=== PATIENT | female | born 1950 | race Caucasian/White ===

== ENCOUNTER → 2016-03-08 | Outpatient (CLI) | payer MEDICARE ==
[2016-03-08 10:25] LABS: Anion Gap 17 mmol/L; Blood Urea Nitrogen 15 mg/dL (7-17); Calcium 10.5 mg/dL (8.4-10.2); Carbon Dioxide 26 mmol/L (22-30); Chloride 102 mmol/L (98-107); Glucose 133 mg/dL (74-99); Non-African American GFR(MDRD) >60 (>60 ml/min/1.73 sqM); Potassium 4.6 mmol/L (3.5-5.1); Sodium 145 mmol/L (137-145)
[2016-03-08 11:05] LABS: Hemoglobin A1C 7.2 % (4.2-6.1)
== END | disposition home or self-care (01) ==
LOC: LABWHC1 09:09
PROVIDERS: ATTEND Internal Medicine
DX: E11.9 Type 2 diabetes mellitus without complications (principal); I11.9 Hypertensive heart disease without heart failure
CPT/HCPCS: 36415; 80048; 82043; 83036

== ENCOUNTER → 2016-08-02 | Outpatient (CLI) | payer MEDICARE ==
[2016-08-02 08:08] LABS: Basophils % (A) 0 %; CH 28.5; CHCM 32.9; Eosinophils # (A) 0.2 k/uL (0-0.7); Eosinophils % (A) 4 %; HCT 40.3 % (34.0-46.0); HDW 2.46; HGB 13.4 gm/dL (11.4-16.0); Luc # (Auto) 0.21; Luc % (Auto) 4; Lymphocytes # (A) 2.2 k/uL (1.0-4.8); Lymphocytes % (A) 39 %; MCHC 33.3 g/dL (31.0-37.0); Mean Platelet Volume 7.2; Monocytes # (A) 0.3 k/uL (0-1.0); Monocytes % (A) 6 %; Neutrophils # (A) 2.7 k/uL (1.3-7.7); Neutrophils % (A) 47 %; RBC 4.63 m/uL (3.80-5.40); WBC 5.7 k/uL (3.8-10.6); WBC (Perox) 6.11
[2016-08-02 08:12] LABS: Cholesterol 172 mg/dL (<200); HDL Cholesterol 68 mg/dL (40-60); Triglycerides 90 mg/dL (<150)
== END | disposition home or self-care (01) ==
LOC: LABWHC1 07:19
PROVIDERS: ATTEND Family Medicine
DX: E11.65 Type 2 diabetes mellitus with hyperglycemia (principal); E78.2 Mixed hyperlipidemia; Z79.899 Other long term (current) drug therapy
CPT/HCPCS: 36415; 80061; 85025

== ENCOUNTER → 2017-10-29 | Outpatient (CLI) | payer MEDICARE ==
--- NOTE | 2017-10-31 09:05 | MM ---
Reason for exam: screening (asymptomatic). Last mammogram was performed 2 years ago. Physical Findings: A clinical breast exam by your physician is recommended on an annual basis and results should be correlated with mammographic findings. MG Screening Mammo w CAD Bilateral CC and MLO view(s) were taken. Prior study comparison: October 17, 2015, bilateral MG screening mammo w CAD. October 01, 2014, mammogram, performed at [facility]. There are scattered fibroglandular densities. No significant changes when compared with prior studies. ASSESSMENT: Benign, BI-RAD 2 RECOMMENDATION: Routine screening mammogram of both breasts in 1 year.
== END | disposition home or self-care (01) ==
LOC: RADMAMWWP 13:37
PROVIDERS: ATTEND Family Medicine
DX: Z12.31 Encounter for screening mammogram for malignant neoplasm of breast (principal)
CPT/HCPCS: 77067

== ENCOUNTER → 2018-07-11 | Outpatient (CLI) | payer MEDICARE ==
[2018-07-11 10:52] LABS: Basophils % (A) 1 %; Eosinophils # (A) 0.2 k/uL (0-0.7); Eosinophils % (A) 3 %; HCT 41.1 % (34.0-46.0); HGB 13.5 gm/dL (11.4-16.0); Lymphocytes % (A) 32 %; MCH 28.7 pg (25.0-35.0); MCHC 32.8 g/dL (31.0-37.0); MCV 87.4 fL (80.0-100.0); Mean Platelet Volume 7.4; Monocytes # (A) 0.3 k/uL (0-1.0); Monocytes % (A) 5 %; Neutrophils # (A) 3.4 k/uL (1.3-7.7); Neutrophils % (A) 56 %; Platelet Count 442 k/uL (150-450); RDW 13.1 % (11.5-15.5); WBC 6.1 k/uL (3.8-10.6)
== END | disposition home or self-care (01) ==
LOC: LABWHC1 09:50
PROVIDERS: ATTEND Family Medicine
DX: J44.9 Chronic obstructive pulmonary disease, unspecified (principal); N18.1 Chronic kidney disease, stage 1
CPT/HCPCS: 36415; 85025

== ENCOUNTER → 2018-10-01 | Outpatient (CLI) | payer MEDICARE ==
[2018-10-01 12:08] LABS: Chol/HDL Ratio 4.56; LDL Cholesterol,Calculated 143.8 mg/dL (0.0-131.0); VLDL Calculation 34.2 mg/dL (5.00-40.00)
== END | disposition home or self-care (01) ==
LOC: LABWHC1 07:07
PROVIDERS: ATTEND Family Medicine
DX: E78.2 Mixed hyperlipidemia (principal)
CPT/HCPCS: 36415; 80061

== ENCOUNTER → 2018-12-20 | Outpatient (CLI) | payer MEDICARE ==
--- NOTE | 2018-12-23 08:13 | MM ---
Reason for exam: screening (asymptomatic). Last mammogram was performed 1 year and 2 months ago. History: Patient is postmenopausal. Took hormonal contraceptives for 4 years. Took estrogen for 1 year. Physical Findings: A clinical breast exam by your physician is recommended on an annual basis and results should be correlated with mammographic findings. MG 3D Screening Mammo W/Cad Bilateral CC and MLO view(s) were taken. Prior study comparison: October 29, 2017, bilateral MG screening mammo w CAD. October 17, 2015, bilateral MG screening mammo w CAD. There are scattered fibroglandular densities. Lateral asymmetric density left breast was present on 10/01/14. No significant changes when compared with prior studies. ASSESSMENT: Negative, BI-RAD 1 RECOMMENDATION: Routine screening mammogram of both breasts in 1 year.
== END | disposition home or self-care (01) ==
LOC: RADMAMWWP 12-04 09:17
PROVIDERS: ATTEND Family Medicine
DX: Z12.31 Encounter for screening mammogram for malignant neoplasm of breast (principal)
CPT/HCPCS: 77063; 77067

== ENCOUNTER → 2018-12-23 | Outpatient (CLI) | payer MEDICARE ==
[2018-12-23 09:45] LABS: Basophils # (A) 0.1 k/uL (0-0.2); Basophils % (A) 2 %; Eosinophils # (A) 0.1 k/uL (0-0.7); Eosinophils % (A) 3 %; HCT 41.6 % (34.0-46.0); HGB 13.7 gm/dL (11.4-16.0); Lymphocytes # (A) 1.8 k/uL (1.0-4.8); Lymphocytes % (A) 34 %; MCH 28.7 pg (25.0-35.0); MCV 86.8 fL (80.0-100.0); Mean Platelet Volume 6.7; Monocytes # (A) 0.4 k/uL (0-1.0); Monocytes % (A) 8 %; Neutrophils # (A) 2.7 k/uL (1.3-7.7); Neutrophils % (A) 51 %; Platelet Count 441 k/uL (150-450); RBC 4.79 m/uL (3.80-5.40); RDW 12.8 % (11.5-15.5); WBC 5.4 k/uL (3.8-10.6)
[2018-12-23 19:12] LABS: African American GFR (CKD) 102.5 (60.0-200.0); Anion Gap 15.5 mmol/L (4.00-12.00); Calcium 10.2 mg/dL (8.7-10.3); Carbon Dioxide 24.5 mmol/L (21.6-31.8); Chol/HDL Ratio 4.57; Potassium 4.6 mmol/L (3.5-5.5)
== END | disposition home or self-care (01) ==
LOC: LABWHC1 08:30
PROVIDERS: ATTEND Family Medicine
DX: E78.2 Mixed hyperlipidemia (principal); E11.9 Type 2 diabetes mellitus without complications; Z79.899 Other long term (current) drug therapy
CPT/HCPCS: 36415; 80048; 80061; 84450; 84460; 85025

== ENCOUNTER → 2019-01-03 | Outpatient (CLI) | payer MEDICARE ==
--- NOTE | 2019-01-03 20:15 | MR ---
EXAMINATION TYPE: MR lumbar spine wo con DATE OF EXAM: 01/03/2019 COMPARISON: None HISTORY: Low back pain TECHNIQUE: Multiplanar, multisequence images of the lumbar spine were acquired. Lumbar vertebra have fairly normal alignment. There is mild narrowing of lumbar disc spaces. There is no compression fracture. There are small posterior disc bulges and herniation from L1 to S1. There i s developmentally adequate spinal canal and no significant spinal stenosis. There is no lumbar parasp inal mass. I see no focal bone destruction. There is no significant neural foraminal narrowing. IMPRESSION: Mild multilevel spondylotic changes with posterior multilevel disc bulging. No significant encroachme nt on the spinal canal. No fracture.
== END | disposition home or self-care (01) ==
LOC: RADMRIMAIN 08:27
PROVIDERS: ATTEND Family Medicine
DX: M47.816 Spondylosis without myelopathy or radiculopathy, lumbar region (principal); M51.26 Other intervertebral disc displacement, lumbar region; M25.552 Pain in left hip
CPT/HCPCS: 72148

== ENCOUNTER 2019-12-16 07:05 | Day surgery (SDC) | payer MEDICARE ==
[2019-12-14 09:03] VITALS: BMI 23.8
[~2019-12-16 07:05] MED LIST: LACTATED RINGERS 1,000 ML IV SCH; LIDOCAINE 1% (10MG/ML) FOR IV START INTRADERMA PRN
[2019-12-16 07:34] VITALS: TEMP 96.3
[2019-12-16 07:34] LABS: Glucose,Whole Blood 127 mg/dL (75-99)
[2019-12-16] MEDS ORDERED: PROPOFOL 10 MG/ML 20 ML VIAL IV ONE (08:01)
--- NOTE | 2019-12-16 08:18 | P.PCN ---
Date of Procedure: 12/16/19 Procedure(s) Performed: BRIEF HISTORY: Patient is a 69-year-old pleasant white female scheduled for an elective colonoscopy as a part of evaluation of prior history of colon polyps. Her last colonoscopy was in 2011. PROCEDURE PERFORMED: Colonoscopy. PREOPERATIVE DIAGNOSIS: history of colon polyps. IV sedation per Anesthesia. PROCEDURE: After informed consent was obtained, the patient, was brought into the endoscopy unit. IV sedation was administered by Anesthesia under continuous monitoring. Digital rectal examination was normal. Initially the Olympus CF-160 flexible video colonoscope was then inserted in the rectum, gradually advanced into the cecum without any difficulty. Careful examination was performed as the scope was gradually being withdrawn. Ileocecal valve and the appendiceal orifice were visualized and appeared normal. Prep was excellent. Mucosa of the cecum, ascending colon, transverse colon, descending colon, sigmoid colon, and rectum appeared normal. scattered sigmoid diverticulosis.Retroflexion was performed in the rectum and Small internal hemorrhoids were seen. The patient tolerated the procedure well. IMPRESSION: Normal-appearing colon from rectum to cecum with no evidence of colorectal neoplasia. Scattered sigmoid diverticulosis Small internal hemorrhoids RECOMMENDATIONS: Findings of this examination were discussed with the patient as well as her family. She was advised to have a repeat screening colonoscopy in 10 years.
[2019-12-16 08:34] VITALS: BP 135/77; PULSE 60; RESP 18
== END 2019-12-16 08:52 | disposition home or self-care (01) ==
LOC: ORWHC2ENDO 07:05
PROVIDERS: ATTEND Internal Medicine Gastroenterology
DX: Z12.11 Encounter for screening for malignant neoplasm of colon (principal); K57.30 Diverticulosis of large intestine without perforation or abscess without bleeding; K64.8 Other hemorrhoids; Z86.010 Personal history of colon polyps; E11.9 Type 2 diabetes mellitus without complications; E78.5 Hyperlipidemia, unspecified; K21.9 Gastro-esophageal reflux disease without esophagitis; Z88.1 Allergy status to other antibiotic agents; Z96.1 Presence of intraocular lens; Z79.899 Other long term (current) drug therapy; Z79.84 Long term (current) use of oral hypoglycemic drugs; Z79.82 Long term (current) use of aspirin; Z98.49 Cataract extraction status, unspecified eye; Z90.710 Acquired absence of both cervix and uterus; Z98.890 Other specified postprocedural states; Z90.89 Acquired absence of other organs
CPT/HCPCS: J2704; G0105; 45378

== ENCOUNTER → 2020-03-07 | Outpatient (CLI) | payer MEDICARE ==
--- NOTE | 2020-03-07 15:49 | BD ---
EXAMINATION TYPE: Axial Bone Density DATE OF EXAM: 03/07/2020 COMPARISON: NONE CLINICAL HISTORY: Postmenopausal female Height: 5 FT 2 IN Weight: 135 FRAX RISK QUESTIONS: Alcohol (3 or more units per day): NO Family History (Parent hip fracture): NO Glucocorticoids (More than 3mos): CREAM (Ex: prednisone, prednisolone, methylprednisolone, dexamethasone, and hydrocortisone). History of Fracture in Adulthood: NO Secondary Osteoporosis: 1. Type 1 Diabetes: NO 2. Hyperthyroidism: NO 3. Menopause before 45: NO 4. Malnutrition: NO 5. Chronic liver disease: NO Rheumatoid Arthritis: NO Current Tobacco Use: NO RISK FACTORS HISTORY OF: Family History of Osteoporosis: NO Active: YES Diet low in dairy products/other sources of calcium: NO Postmenopausal woman: TOTAL HYST AGE 52 Take estrogen and/or progesterone medications: TOOK HRT FOR SEV MONTHS FOLLOWING HYST Lost more than 2 inches in height since high school: NO MEDICATIONS: Additional Medications: METFORMIN, LOPID, OMEPRAZOLE ,ASPIRIN Additional History: GANGLION CYST REMOVED FEB 2020 EXAM MEASUREMENTS: Bone mineral densitometry was performed using the Haier System. Bone mineral density as measured about the Lumbar spine is: ----- L1-L4(G/cm2): 1.399 T Score Values are as follows: ----- L2: 2.4 ----- L3: 2.4 ----- L4: 1.4 ----- L1-L4: 1.8 PREV DONE ELSEWHERE Bone mineral density about the R hip (g/cm2): 1.052 Bone mineral density about the L hip (g/cm2): 1.066 T Score values are as follows: -----R Neck: 0.2 -----L Neck: 0.1 -----R Total: 0.8 -----L Total: 0.6 PREV DONE ELSEWHERE IMPRESSION: Normal (Values between +1 and -1 indicate normal bone mass). Consider repeating this study in 5 year s or sooner if there is some new clinical indication. NOTE: T-SCORE=SD OF THE YOUNG ADULT MEAN.
--- NOTE | 2020-03-10 10:00 | MM ---
Reason for exam: screening (asymptomatic). Last mammogram was performed 1 year and 3 months ago. History: Patient is postmenopausal. Took hormonal contraceptives for 4 years. Took estrogen for 1 year. Physical Findings: A clinical breast exam by your physician is recommended on an annual basis and results should be correlated with mammographic findings. MG 3D Screening Mammo W/Cad Bilateral CC and MLO view(s) were taken. Prior study comparison: December 20, 2018, bilateral MG 3d screening mammo w/cad. October 29, 2017, bilateral MG screening mammo w CAD. There are scattered fibroglandular densities. No significant changes when compared with prior studies. ASSESSMENT: Benign, BI-RAD 2 RECOMMENDATION: Routine screening mammogram of both breasts in 1 year.
== END | disposition home or self-care (01) ==
LOC: RADMAMWWP 14:33
PROVIDERS: ATTEND Obstetrics & Gynecology
DX: Z12.31 Encounter for screening mammogram for malignant neoplasm of breast (principal); M85.88 Other specified disorders of bone density and structure, other site; N95.1 Menopausal and female climacteric states
CPT/HCPCS: 77063; 77067; 77080

== ENCOUNTER → 2020-04-12 | Outpatient (CLI) | payer MEDICARE ==
[2020-04-12 11:15] LABS: Basophils # (A) 0.04 X 10*3/uL (0.00-0.10); Basophils % (A) 0.6 %; Eosinophils # (A) 0.15 X 10*3/uL (0.04-0.35); Eosinophils % (A) 2.3 %; HCT 40.7 % (37.2-46.3); HGB 13.1 g/dL (12.0-15.0); Lymphocytes # (A) 2.45 X 10*3/uL (0.90-5.00); Lymphocytes % (A) 37.9 %; MCH 27.7 pg (27.0-32.0); MCHC 32.2 g/dL (32.0-37.0); Mean Platelet Volume 10.7 fL (9.5-12.2); Monocytes # (A) 0.49 X 10*3/uL (0.20-1.00); Monocytes % (A) 7.6 %; Neutrophils # (A) 3.32 X 10*3/uL (1.80-7.70); Neutrophils % (A) 51.4 %; Platelet Count 533 X 10*3/uL (140-440); RBC 4.73 X 10*6/uL (4.10-5.20); RDW 13.2 % (11.5-14.5); WBC 6.46 X 10*3/uL (4.50-10.00)
[2020-04-12 11:55] LABS: African American GFR (CKD) 101.7 (60.0-200.0); Albumin 5.3 g/dL (3.80-4.90); Albumin/Globulin Ratio 2.3 (1.60-3.17); Anion Gap 9.4 mmol/L (4.00-12.00); BUN/Creat Ratio 17.14 Ratio (12.00-20.00); Calcium 10.1 mg/dL (8.7-10.3); Carbon Dioxide 28.6 mmol/L (21.6-31.8); Chol/HDL Ratio 3.84; Globulin 2.3 g/dL (1.6-3.3); Non-African American GFR(CKD) 87.8 (60.0-200.0); Potassium 4.5 mmol/L (3.5-5.5); Total Bilirubin 0.4 mg/dL (0.3-1.2); Total Protein 7.6 g/dL (6.2-8.2)
== END | disposition home or self-care (01) ==
LOC: LABWHC1 07:31
PROVIDERS: ATTEND Family Medicine
DX: E11.9 Type 2 diabetes mellitus without complications (principal)
CPT/HCPCS: 36415; 80053; 80061; 85025

== ENCOUNTER 2020-08-23 21:07 | Observation (INO) | payer MEDICARE ==
--- NOTE | 2020-08-23 22:15 | ED ---
Chest Pain HPI - General Chief Complaint: Chest Pain Stated Complaint: Chest pain,Face swelling Time Seen by Provider: 08/23/20 21:25 Source: EMS Mode of arrival: EMS Limitations: no limitations - Related Data Home Medications Medication Instructions Recorded Confirmed Aspirin 81 mg PO HS 12/14/19 08/23/20 Omeprazole 20 mg PO DAILY 12/14/19 08/23/20 gemfibroziL [Lopid] 600 mg PO AC-BID 12/14/19 08/23/20 metFORMIN HCL [Glucophage] 500 mg PO BID 12/14/19 08/23/20 Clobetasol Emollient 0.05% Cre 1 applic TOPICAL BID 08/23/20 08/23/20 Allergies Allergy/AdvReac Type Severity Reaction Status Date / Time vancomycin Allergy SEVERE Verified 08/23/20 22:40 HEADACHE Review of Systems ROS Statement: Those systems with pertinent positive or pertinent negative responses have been documented in the HPI. ROS Other: All systems not noted in ROS Statement are negative. EKG Findings - EKG Comments: EKG Findings:: G is sinus rhythm 75 DE 162 QRS 82 QTC 439 Past Medical History Past Medical History: Diabetes Mellitus, GERD/Reflux, Osteoarthritis (OA) History of Any Multi-Drug Resistant Organisms: None Reported Past Surgical History: Adenoidectomy, Hysterectomy, Orthopedic Surgery, Tonsillectomy Additional Past Surgical History / Comment(s): CATARACT SURGERY WITH IMPLANTS , LEFT KNEE ARTHROSCOPIC Past Anesthesia/Blood Transfusion Reactions: No Reported Reaction Past Psychological History: Anxiety Smoking Status: Never smoker Past Alcohol Use History: None Reported Past Drug Use History: None Reported - Past Family History Mother Family Medical History: No Reported History General Exam Limitations: no limitations Course Vital Signs 08/23/20 21:19 Temperature 98.2 F Pulse Rate 76 Respiratory 16 Rate Blood Pressure 196/80 O2 Sat by Pulse 99 Oximetry Disposition Clinical Impression: Atypical chest pain, Chest pain Disposition: ADMITTED IP TO THIS HOSP Condition: Good Is patient prescribed a controlled substance at d/c from ED?: No Referrals: Elmer Rodriguez Jr, DO [Primary Care Provider] - 1-2 days
[2020-08-23] MEDS ORDERED: SODIUM CHLORIDE 0.9% 1,000 ML IV STA (22:31)
[2020-08-23] MEDS ORDERED: MAG HYDROX/AL HYDROX/SIMETH 30 ML, HYOSCYAMINE ELIXIR 10 ML PO STA ×2 (22:32)
[2020-08-23 22:41] LABS: Basophils % (A) 0 %; Eosinophils # (A) 0.1 k/uL (0-0.7); Eosinophils % (A) 2 %; HCT 37.2 % (34.0-46.0); HGB 12.8 gm/dL (11.4-16.0); Lymphocytes # (A) 2.6 k/uL (1.0-4.8); Lymphocytes % (A) 36 %; MCH 28.6 pg (25.0-35.0); MCHC 34.3 g/dL (31.0-37.0); MCV 83.4 fL (80.0-100.0); Monocytes # (A) 0.4 k/uL (0-1.0); Monocytes % (A) 5 %; Neutrophils # (A) 3.9 k/uL (1.3-7.7); Neutrophils % (A) 55 %; Platelet Count 427 k/uL (150-450); RBC 4.46 m/uL (3.80-5.40); RDW 13.4 % (11.5-15.5); WBC 7.2 k/uL (3.8-10.6)
[2020-08-23 22:50] LABS: ALT 23 U/L (4-34); AST 40 U/L (14-36); African American GFR (CKD) >90 (>60 ml/min/1.73 sqM); Albumin 4.9 g/dL (3.5-5.0); Alkaline Phosphatase 100 U/L (38-126); Anion Gap 14 mmol/L; Blood Urea Nitrogen 11 mg/dL (7-17); Calcium 10.3 mg/dL (8.4-10.2); Carbon Dioxide 22 mmol/L (22-30); Chloride 95 mmol/L (98-107); Creatine Kinase 670 U/L (30-135); Glucose 121 mg/dL (74-99); Lipase 162 U/L (23-300); Magnesium 1.7 mg/dL (1.6-2.3); Non-African American GFR(CKD) >90 (>60 ml/min/1.73 sqM); Potassium 4.7 mmol/L (3.5-5.1); Sodium 131 mmol/L (137-145); Total Bilirubin 0.3 mg/dL (0.2-1.3); Total Protein 7.9 g/dL (6.3-8.2)
--- NOTE | 2020-08-23 22:51 | XR ---
EXAMINATION TYPE: XR chest 2V DATE OF EXAM: 08/23/2020 COMPARISON: 10/17/2015 HISTORY: Chest pain TECHNIQUE: FINDINGS: Heart and mediastinum are normal. Lungs are clear. Diaphragm is normal. Bony thorax appears normal. IMPRESSION: Normal chest. No change.
[2020-08-23 22:54] LABS: INR 0.9 (<1.2); Partial Thromboplastin Time 22.5 sec (22.0-30.0); Prothrombin Time 10.2 sec (9.0-12.0)
[2020-08-23] MEDS ORDERED: ASPIRIN 81 MG PO STA (23:40)
[2020-08-23] MEDS ORDERED: NITROGLYCERIN SL TABS 0.4 MG TAB SUBLINGUAL PRN (23:40)
[2020-08-23] MEDS ORDERED: MORPHINE SULFATE 4 MG/ML SYRINGE IV PRN (23:40)
--- NOTE | 2020-08-23 23:41 | CT ---
EXAMINATION TYPE: CT angio chest DATE OF EXAM: 08/23/2020 COMPARISON: None HISTORY: SOB CT DLP: 230 mGycm Automated exposure control for dose reduction was used. CONTRAST: Performed with IV Contrast, patient injected with 80 mL of Isovue 370. There are 3-D post processed images. The lungs are clear of infiltrate. There is no evidence of a pulmonary mass. There is no pleural effu christian. There is no pericardial effusion. There is no evidence of a pneumothorax. Heart size is fairly normal. Thoracic aorta is intact. There is no dissection. The ascending aorta measures 3.3 cm. There is alecia l contrast opacification of the pulmonary arteries. There are no filling defects. There is no mediastinal adenopathy. There are no hilar masses. The bony thorax is intact. IMPRESSION: Normal exam. No evidence of pulmonary embolism. No suspicious pulmonary mass.
[2020-08-23] MEDS ORDERED: SODIUM CHLORIDE 0.9% 1,000 ML IV SCH (23:45)
[2020-08-24 00:56] VITALS: TEMP 98.1
[2020-08-24 06:10] LABS: Glucose,Whole Blood 131 mg/dL (75-99)
[2020-08-24] MEDS ORDERED: REGADENOSON 0.4 MG/5 ML SYRINGE IV PRN (07:27)
[2020-08-24] MEDS ORDERED: AMINOPHYLLINE 500 MG/20 ML VIAL IV PRN (07:27)
[2020-08-24] MEDS ORDERED: CAFFEINE CITRATE 60 MG/3 ML VIAL IV PRN (07:27)
[2020-08-24] MEDS ORDERED: PANTOPRAZOLE 40 MG TABLET PO SCH (07:30)
[2020-08-24] MEDS ORDERED: ASPIRIN 325 MG TAB PO SCH (09:00)
[2020-08-24] MEDS ORDERED: METOPROLOL TARTRATE 25 MG TAB PO SCH (09:00)
[2020-08-24] MEDS ORDERED: ASPIRIN 81 MG PO SCH (09:00)
[2020-08-24] MEDS ORDERED: HEPARIN SODIUM,PORCINE/PF 5,000 UNIT/0.5 ML SYRINGE SQ SCH (09:00)
[2020-08-24 10:56] LABS: African American GFR (CKD) >90 (>60 ml/min/1.73 sqM); Anion Gap 8 mmol/L; Blood Urea Nitrogen 8 mg/dL (7-17); Calcium 10.1 mg/dL (8.4-10.2); Carbon Dioxide 28 mmol/L (22-30); Chloride 99 mmol/L (98-107); Glucose 152 mg/dL (74-99); Non-African American GFR(CKD) >90 (>60 ml/min/1.73 sqM); Potassium 4.3 mmol/L (3.5-5.1); Sodium 135 mmol/L (137-145)
[2020-08-24 11:52] LABS: Glucose,Whole Blood 129 mg/dL (75-99)
--- NOTE | 2020-08-24 12:43 | NM ---
EXAMINATION TYPE: NM stress cardiolite complete DATE OF EXAM: 08/24/2020 COMPARISON: NONE HISTORY: S pain TECHNIQUE: After the intravenous administration of 9.7 mCi Tc 99m Sestamibi - Rest images obtained 5 5 minutes post injection. The patient exercised using a ATA protocol and 1 minute prior to peak e xercise was injected with 25.8 mCi Tc 99m Sestamibi - Stress images obtained 45 minutes post injectio n. Patient achieved 100% of expected maximal heart rate. FINDINGS: Targeted heart rate was achieved during performance of the study. Review of stress and rest SPECT drea ges demonstrates no distinct perfusion abnormality. Gated analysis shows normal wall motion with an estimated left ventricular ejection fraction of 83 %. IMPRESSION: No scintigraphic evidence for reversible ischemia consider echocardiographic correlation for elevated ejection fraction
--- NOTE | 2020-08-24 13:32 | P.STRESS ---
- Stress Test Note Stress Test Results/Findings: Exam Performed: NM stress cardiolite complete Exam Date: 08/24/20 Reason for Exam: CP Height: 5 ft 1 in Weight: 59 kg Protocol: CARDIOLITE Stage: 2 Duration of Exercise: 6:00 Resting Heart Rate: 67 Resting Blood Pressure: 170/85 Maximum Achieved Heart Rate: 151 Maximum Achieved Blood Pressure: 205/63 85% PMHR: 127 100% PMHR: 149 METS: 7.3 Technologist Comment: Stress Test Results/Findings: Patient underwent Cardiolite exercise stress EKG with a Carl protocol treadmill stress test. Patient exercised into Stage 2 for a total of 6 minutes reaching a total of 7.3 METS. Patient's maximum heart rate was 151 which represented 100 % age-predicted maximum heart rate. Stress EKG findings: At baseline patient's EKG showed normal sinus rhythm, normal axis, minimal 0.[address] depressions in 1. At peak exercise, EKG showed occasional PVCs, no significant change from baseline, large amount of artifact. Conclusions: 1. Normal EKG response to exercise without evidence of inducible ischemia. 2. Fair exercise capacity. 3. Nuclear portion to be reported separately.
--- NOTE | 2020-08-24 13:43 | ECHOF ---
Referral Reason:cp MEASUREMENTS -------- HEIGHT: 152.4 cm WEIGHT: 59.0 kg BP: 138/74 RVIDd: 2.6 cm (< 3.3) IVSd: 1.0 cm (0.6 - 1.1) LVIDd: 4.1 cm (3.9 - 5.3) LVPWd: 1.0 cm (0.6 - 1.1) IVSs: 1.2 cm LVIDs: 2.8 cm LVPWs: 1.7 cm LA Diam: 3.2 cm (2.7 - 3.8) Ao Diam: 2.7 cm (2.0 - 3.7) AV Cusp: 1.3 cm (1.5 - 2.6) MV EXCURSION: 16.659 mm (> 18.000) MV EF SLOPE: 27 mm/s (70 - 150) EPSS: 0.1 cm MV E Neftaly: 0.46 m/s MV DecT: 309 ms MV A Neftaly: 1.12 m/s MV E/A Ratio: 0.41 RAP: 5.00 mmHg RVSP: 25.88 mmHg FINDINGS -------- Sinus rhythm. This was a technically good study. LV size, wall thickness and systolic function are normal, with an EF greater than 55%. The left jett tricular size is normal. The right ventricle is normal in size. The left atrial size is normal. The right atrial size is normal. The aortic valve is trileaflet, and appears structurally normal. No aortic stenosis or regurgitation. Mild mitral annular calcification present. Mild mitral regurgitation is present. Mild tricuspid regurgitation present. Right ventricular systolic pressure is normal at < 35 mmHg. There is no pulmonic regurgitation present. The aortic root size is normal. There is no pericardial effusion. CONCLUSIONS -------- 1. LV size, wall thickness and systolic function are normal, with an EF greater than 55%. 2. The left ventricular size is normal. 3. The right ventricle is normal in size. 4. The left atrial size is normal. 5. The right atrial size is normal. 6. The aortic valve is trileaflet, and appears structurally normal. No aortic stenosis or regurgitati on. 7. Mild mitral annular calcification present. 8. Mild mitral regurgitation is present. 9. Mild tricuspid regurgitation present. 10. There is no pulmonic regurgitation present. 11. The aortic root size is normal. 12. There is no pericardial effusion. SENIOR ORACLE DBA: Angella Robsion RDCS
[2020-08-24 13:44] LABS: Chol/HDL Ratio 4.2; LDL Cholesterol,Calculated 142.4 mg/dL (0.0-131.0); VLDL Calculation 20.6 mg/dL (5.00-40.00)
--- NOTE | 2020-08-24 13:58 | CONS ---
CONSULTATION HISTORY OF PRESENT ILLNESS: This is a 70-year-old lady with a known diagnosis of type 2 diabetes mellitus, who takes care of her almost gives him full-time care. She also has hyperlipidemia. She came into the hospital with an episode of what she described as a lump like feeling in the epigastric area seemed to occur when she went to bed at night. Did not occur with physical activity. This was going on for about 2-3 days and then she decided to come into the hospital and then complained of left ear ache and some burning feeling in the left scientologist area. She came in with these symptoms and had 3 sets of troponins performed, all of which were unremarkable. She also had EKGs performed which revealed a sinus mechanism with nonspecific ST-T abnormality in the leads V1 and V2. The clinical picture suggests that she has what seems to be atypical chest pain, but she has risk factors in the form of hypertension and hypercholesterolemia. At the time of my evaluation, she is asymptomatic resting comfortably without symptoms. She indicates to me that she has gastroesophageal reflux disease and has taken omeprazole and her symptoms seem similar to that and this seemed to occur at night. Sometimes she is better off when she uses 2 pillows. The patient otherwise was free of chest pain at the time of my evaluation, and troponins are normal and EKG did not reveal any significant changes. PAST MEDICAL HISTORY: 1. Type 2 diabetes. 2. Hyperlipidemia. 3. History of some anxiety disorder. 4. The patient has gastroesophageal reflux disease. 5. She is status post hysterectomy and some orthopedic surgery and cataract surgery. MEDICATIONS: Medications at home include omeprazole, Lopid and metformin, aspirin 81 mg daily. ALLERGIES: SHE IS ALLERGIC TO VANCOMYCIN. PHYSICAL EXAMINATION: On examination, blood pressure is 130/70, pulse rate is 70 per minute, regular. HEENT unremarkable. Fundus was not examined by me. NECK is supple. There is no JVD. I do not hear a carotid bruit. There is no thyromegaly. HEART exam reveals S1, S2 heard normally. No rub, murmur or gallop. LUNGS are clear. ABDOMEN is soft, nontender. Lower EXTREMITIES reveal palpable pulses. No edema. CENTRAL NERVOUS SYSTEM is normal. EKG revealed sinus mechanism, nonspecific ST abnormality. No acute changes. LAB DATA: Reveals normal troponins. IMPRESSION: 1. Atypical chest pain. 2. Type 2 diabetes. 3. History of hypercholesterolemia. RECOMMENDATIONS: I am recommending that we will place her on a small dose of beta nely, proceed with stress Cardiolite scan. I will also decrease her aspirin to 81 mg daily. Continue the metoprolol tartrate as ordered. I will also start her on a statin medication, Lipitor 20 mg daily. If stress test is negative, she can be discharged and I will see her in the office. I discussed my thoughts in detail with the patient. Thank you very much for the consult. DERRICK / BERNARDO: [id number] /
[2020-08-24 14:38] VITALS: BP 123/70; PULSE 66; RESP 18
--- NOTE | 2020-08-24 15:53 | P.HPIM ---
History of Present Illness H&P Date: 08/24/20 Chief Complaint: Midsternal chest pain History and Physical and Discharge Summary This is 70-year-old female with past medical history of diabetes mellitus, gastroesophageal reflux disease, osteoarthritis, anxiety, constipation and multiple other medical issues presented to the ER with complaints of nonradiating midsternal chest pain 2 days. States pain initially woke her up on Saturday morning at 0400. Reported midsternal sensation resembling "food stuck penitent[facility] down " and had difficulty eating from that point on until now. Denies nausea vomiting or diarrhea. Denies shortness of breath, no diaphoresis. Denies lightheadedness dizziness or focal deficits. Patient reports she is active , walks and bikes daily.Hypertensive on admission with systolic blood pressure in the 190s. Troponins negative 3, sodium initially 131, currently 135. Triglycerides 103, Cholesterol 214 , LDL 142.4 , HDL 51 .Chest x-ray repo rted normal. CTA reported normal ,negative for PE or pulmonary mass. EKG reporting normal sinus rhythm and nonspecific ST abnormalities, possible anterior infarct, age undetermined. Evaluated by surgery, recently returned from Cardiolite stress test. Denies further chest pain. On Sitting up, eating, without difficulty. Discussed proceeding with barium swallow to rule out stricture or foreign mass with a GI consult once currently stress test results are available. Patient agreeable to plan of care. Review of Systems ROS Statement: Those systems with pertinent positive or pertinent negative responses have been documented in the HPI. ROS Other: All systems not noted in ROS Statement are negative. Past Medical History Past Medical History: Diabetes Mellitus, GERD/Reflux, Osteoarthritis (OA) History of Any Multi-Drug Resistant Organisms: None Reported Past Surgical History: Adenoidectomy, Hysterectomy, Orthopedic Surgery, Tonsillectomy Additional Past Surgical History / Comment(s): CATARACT SURGERY WITH IMPLANTS , LEFT KNEE ARTHROSCOPIC Past Anesthesia/Blood Transfusion Reactions: No Reported Reaction Past Psychological History: Anxiety Smoking Status: Never smoker Past Alcohol Use History: None Reported Past Drug Use History: None Reported - Past Family History Mother Family Medical History: No Reported History Medications and Allergies Home Medications Medication Instructions Recorded Confirmed Type Aspirin 81 mg PO HS 12/14/19 08/23/20 History Omeprazole 20 mg PO DAILY 12/14/19 08/23/20 History gemfibroziL [Lopid] 600 mg PO AC-BID 12/14/19 08/23/20 History metFORMIN HCL [Glucophage] 500 mg PO BID 12/14/19 08/23/20 History Clobetasol Emollient 0.05% Cre 1 applic TOPICAL BID 08/23/20 08/23/20 History Atorvastatin [Lipitor] 20 mg PO DAILY #30 tab 08/24/20 Rx Metoprolol Tartrate [Lopressor] 12.5 mg PO BID #60 tab 08/24/20 Rx Allergies Allergy/AdvReac Type Severity Reaction Status Date / Time vancomycin Allergy SEVERE Verified 08/23/20 22:40 HEADACHE Physical Exam Vitals: Vital Signs Temp Pulse Pulse Resp BP BP Pulse Ox 08/24/20 04:00 98.1 F 60 17 138/74 97 08/24/20 01:40 65 18 08/24/20 00:54 98.1 F 69 18 158/74 98 08/24/20 00:11 78 16 188/72 97 08/23/20 21:19 98.2 F 76 16 196/80 99 Intake and Output 08/23/20 08/24/20 08/24/20 22:59 06:59 14:59 Other: Voiding Method Toilet Weight 58.967 kg 59 kg PHYSICAL EXAM: VITAL SIGNS: As above GENERAL: Sitting up in bed, no acute distress HEENT: Conjunctivae normal. eyes normal. Oral mucosa moist NECK: No JVD. No thyroid enlargement. CARDIOVASCULAR: S1, S2 regular.. No murmur RESPIRATION: Breath sounds diminished in the bases. No rhonchi or crackles. No bronchial breathing. ABDOMEN: Soft, nontender . No guarding. no masses palpable. No ascites, No hepatosplenomegaly.Bowel sounds heard. LEGS: No edema. no swelling PSYCHIATRY: Alert and oriented X3, mood and affect normal. NERVOUS SYSTEM: Cranial N 2-12 grossly normal. Moves all 4 limbs. No focal deficits. Strength and sensation grossly intact.. Skin: Warm and dry, no rash Lymphatic system. No LN neck axilla. Results CBC & Chem 7: 08/23/20 21:51 08/24/20 10:27 Labs: Abnormal Lab Results - Last 24 Hours (Table) 08/23/20 08/24/20 Range/Units 21:51 06:09 Sodium 131 L (137-145) mmol/L Chloride 95 L (98-107) mmol/L Creatinine 0.46 L (0.52-1.04) mg/dL Glucose 121 H (74-99) mg/dL POC Glucose (mg/dL) 131 H (75-99) mg/dL Calcium 10.3 H (8.4-10.2) mg/dL AST 40 H (14-36) U/L Creatine Kinase 670 H (30-135) U/L Thrombosis Risk Factor Assmnt - Choose All That Apply Any of the Below Risk Factors Present?: Yes Each Risk Factor Represents 2 Points: Age 61-74 years Other congenital or acquired thrombophilia - If yes, enter type in comment: No Thrombosis Risk Factor Assessment Total Risk Factor Score: 2 Thrombosis Risk Factor Assessment Level: Low Risk Assessment and Plan Assessment: Acute midsternal chest pain, normal troponins, atypical, Cardiolite stress test pending Accelerated hypertension, present on admission, controlled Hyponatremia, resolved Gastroesophageal reflux disease Hypercholesterolemia Diabetes mellitus type 2 Osteoarthritis Anxiety Constipation, takes Colace as needed. Plan: Continue on current medication regime ,monitoring and symptomatic treatme nt. Significant clinical improvement. Patient will be discharged home today in a stable condition with guarded prognosis pending her stress test results, final DC recommendations and clearance from cardiology. Recently notified that patient now declining barium swallow, states it was just completed?? And wishes to proceed home. Barium swallow and GI consult canceled. Recommend further follow-up outpatient with GI. Discharge Medication List Aspirin 81 mg PO HS 12/14/19 [History] Omeprazole 20 mg PO DAILY 12/14/19 [History] gemfibroziL [Lopid] 600 mg PO AC-BID 12/14/19 [History] metFORMIN HCL [Glucophage] 500 mg PO BID 12/14/19 [History] Clobetasol Emollient 0.05% Cre 1 applic TOPICAL BID 08/23/20 [History] Atorvastatin [Lipitor] 20 mg PO DAILY #30 tab 08/24/20 [Rx] Metoprolol Tartrate [Lopressor] 12.5 mg PO BID #60 tab 08/24/20 [Rx] The impression and plan of care has been dictated as directed. : I performed a history and examination of this patient, discussed the same with the dictator. I agree with the dictator's note ,documented as a scribe. Any additional findings or plans will be noted.
[2020-08-25] MEDS ORDERED: ATORVASTATIN 20 MG TAB PO SCH (09:00)
== END 2020-08-24 16:29 | disposition home or self-care (01) ==
LOC: EC 21:07 → 3SCARD 23:40
PROVIDERS: ADMIT Family Medicine; ATTEND Family Medicine
DX: R07.2 Precordial pain (principal); I10 Essential (primary) hypertension; E87.1 Hypo-osmolality and hyponatremia; K21.9 Gastro-esophageal reflux disease without esophagitis; E11.9 Type 2 diabetes mellitus without complications; E78.00 Pure hypercholesterolemia, unspecified; M19.90 Unspecified osteoarthritis, unspecified site; K59.00 Constipation, unspecified; Z20.822 Contact with and (suspected) exposure to COVID-19; H92.02 Otalgia, left ear; R94.31 Abnormal electrocardiogram [ECG] [EKG]; E78.5 Hyperlipidemia, unspecified; Z88.1 Allergy status to other antibiotic agents; F41.9 Anxiety disorder, unspecified; Z79.82 Long term (current) use of aspirin; Z79.84 Long term (current) use of oral hypoglycemic drugs; Z79.899 Other long term (current) drug therapy; Z98.41 Cataract extraction status, right eye; Z98.42 Cataract extraction status, left eye; Z90.710 Acquired absence of both cervix and uterus
CPT/HCPCS: 93005 ×2; 99285; 36415; 93017; 93306; 83880; 80061; 80053; 80048; 82550; 83690; 83735; 84484 ×2; 85025; 85610; 85730; 87635; 71046; 71275; 78452; G0378; A9500; Q9967

== ENCOUNTER → 2020-09-09 | Outpatient (CLI) | payer MEDICARE | END | disposition home or self-care (01) ==

== ENCOUNTER → 2021-01-19 | Outpatient (CLI) | payer MEDICARE ==
--- NOTE | 2021-01-19 12:50 | XR ---
EXAMINATION TYPE: XR Hip LT and AP Pelvis DATE OF EXAM: 01/19/2021 CLINICAL HISTORY: pain TECHNIQUE: AP and frogleg views of the left hip are obtained. Single view pelvis is also submitted. COMPARISON: None. FINDINGS: There is no acute fracture/dislocation evident. The joint space appears within normal li mits. The overlying soft tissue appears unremarkable. IMPRESSION: 1. There is no acute fracture or dislocation.ICD 10 NO FRACTURE, INITIAL EVALUATION
== END ==
LOC: RADXRMAIN 11:15
PROVIDERS: ATTEND Family Medicine
DX: M25.552 Pain in left hip (principal)
CPT/HCPCS: 73502

== ENCOUNTER → 2022-03-15 | Outpatient (CLI) | payer MEDICARE ==
--- NOTE | 2022-03-15 10:25 | MM ---
Reason for Exam: Clinical finding. Last screening mammogram was performed 10 month(s) ago. Indicated Problems: Non-bloody discharge of both sides (White) for 1 Year(s). Pain of the right side (Focal) for 1 Day(s) : UNDER BREAST. Patient History: Menarche at age 10. First Full-Term at age 18. Left ovary removed at age 53. Right ovary removed at age 53. Hysterectomy at age 53. Postmenopausal. Patient used Estrogen for 1 year. Patient used Hormonal Contraceptives for 4 years. Risk Values: Angela 5 year model risk: 1.4%. NCI Lifetime model risk: 3.6%. Prior Study Comparison: 10/29/2017 Bilateral Screening Mammogram, [facility]. 12/20/2018 Bilateral Screening Mammogram, [facility]. 03/07/2020 Bilateral Screening Mammogram, [facility]. 05/12/2021 Bilateral Screening Mammogram, [facility]. Tissue Density: There are scattered fibroglandular densities. Findings: Analyzed By CAD. Scattered benign round calcifications are redemonstrated. Some areas of asymmetric density remain unchanged. No significant change from prior exams. Slight nipple inversion on both sides is a chronic finding. Patient reports bilateral galactorrhea. Overall Assessment: Incomplete: need additional imaging evaluation, BI-RAD 0 Management: Diagnostic Breast Ultrasound of both breasts. Periareolar regions on both sides. Electronically signed and approved by: María Elena Kearns M.D. Radiologist
--- NOTE | 2022-03-15 10:44 | USB ---
Reason for Exam: Clinical finding. Patient History: Menarche at age 10. First Full-Term at age 18. Left ovary removed at age 53. Right ovary removed at age 53. Hysterectomy at age 53. Postmenopausal. Patient used Estrogen for 1 year. Patient used Hormonal Contraceptives for 4 years. Risk Values: Angela 5 year model risk: 1.4%. NCI Lifetime model risk: 3.6%. Technique: Method: Targeted. Prior Study Comparison: 12/20/2018 Bilateral Screening Mammogram, [facility]. 03/07/2020 Bilateral Screening Mammogram, [facility]. 05/12/2021 Bilateral Screening Mammogram, [facility]. Findings: The axilla of both breasts and the retroareolar of both breasts were scanned. Bilateral subareolar and periareolar breast ultrasounds are performed including standing of the axilla. No solid or cystic lesion or axillary lymphadenopathy is seen. No duct ectasia. Overall Assessment: Benign, BI-RAD 2 Management: Screening Mammogram of both breasts in 1 year. Further clinical workup and management of patient's galactorrhea as indicated. Patient should continue monthly self breast exams. These results should not preclude additional follow-up of suspicious palpable abnormalities. Results were given to the patient verbally at the time of exam. Electronically signed and approved by: María Elena Kearns M.D. Radiologist
== END | disposition home or self-care (01) ==
LOC: RADMAMWWP 09:35
PROVIDERS: ATTEND Obstetrics & Gynecology Obstetrics
DX: N64.52 Nipple discharge (principal); N64.4 Mastodynia; Z78.0 Asymptomatic menopausal state
CPT/HCPCS: 77066; 76642; G0279; 77062

== ENCOUNTER → 2022-08-31 | Outpatient (CLI) | payer MEDICARE | END | disposition home or self-care (01) | LOC: LABWHC1 14:51 | PROVIDERS: ATTEND Family Medicine | DX: E11.9 Type 2 diabetes mellitus without complications (principal) | CPT/HCPCS: 36415; 83036 ==

== ENCOUNTER 2022-10-04 06:57 | Observation (INO) | payer MEDICARE ==
[2022-10-04] MEDS ORDERED: ASPIRIN 81 MG PO STA (07:09)
--- NOTE | 2022-10-04 07:09 | ED ---
General Adult HPI <Catarino Moreira - Last Filed: 10/04/22 09:39> - General Source: patient Limitations: no limitations - History of Present Illness -: hour(s) (3) Quality: stabbing Consistency: intermittent, now resolved Associated Symptoms: other (left arm heavy) Treatments Prior to Arrival: none - Related Data Patient : No <Jaylan Schaeffer - Last Filed: 10/04/22 10:38> - General Stated complaint: Chest Pain Time Seen by Provider: 10/04/22 07:02 - History of Present Illness Initial comments: Well appearing female present alert and oriented with complaints of having sharp pains in her chest since 0430 this morning which lasted only 20 seconds. Had same pain yesterday while working around house. Just lasted a second or two. Was see by Dr Redman a couple years ago and was told she had a heart murmur. No nausea, vomiting or diaphrorsis. Left arm feels heavy which just started, and also a little bit of pain in her back on left side. Hx: diabetes, htn (Jaylan Schaeffer) - Related Data Home Medications Medication Instructions Recorded Confirmed Aspirin 81 mg PO HS 12/14/19 10/04/22 Omeprazole 40 mg PO DAILY 12/14/19 10/04/22 gemfibroziL [Lopid] 600 mg PO AC-BID 12/14/19 10/04/22 metFORMIN HCL [Glucophage] 500 mg PO BID 12/14/19 10/04/22 Cholecalciferol [Vitamin D3 (25 50 mcg PO DAILY 10/04/22 10/04/22 Mcg = 1000 Iu)] Losartan [Cozaar] 12.5 mg PO DAILY 10/04/22 10/04/22 Multivit-Min/FA/Lycopen/Lutein 1 tab PO DAILY 10/04/22 10/04/22 [Centrum Silver Tablet] Triamcinolone 0.1% Cream [Kenalog 1 applic TOPICAL TID 10/04/22 10/04/22 0.1% Cream] Previous Rx's Medication Instructions Recorded Atorvastatin [Lipitor] 20 mg PO DAILY #30 tab 08/24/20 Metoprolol Tartrate [Lopressor] 12.5 mg PO BID #60 tab 08/24/20 Allergies Allergy/AdvReac Type Severity Reaction Status Date / Time vancomycin AdvReac SEVERE Verified 10/04/22 08:42 HEADACHE Review of Systems ROS Other: All systems not noted in ROS Statement are negative. <Catarino Moreira - Last Filed: 10/04/22 09:39> ROS Other: All systems not noted in ROS Statement are negative. <Jaylan Schaeffer - Last Filed: 10/04/22 10:38> ROS Statement: Those systems with pertinent positive or pertinent negative responses have been documented in the HPI. Past Medical History Past Medical History: Diabetes Mellitus, GERD/Reflux, Osteoarthritis (OA) History of Any Multi-Drug Resistant Organisms: None Reported Past Surgical History: Adenoidectomy, Hysterectomy, Orthopedic Surgery, Tonsillectomy Additional Past Surgical History / Comment(s): CATARACT SURGERY WITH IMPLANTS , LEFT KNEE ARTHROSCOPIC Past Anesthesia/Blood Transfusion Reactions: No Reported Reaction Past Psychological History: Anxiety Smoking Status: Never smoker Past Alcohol Use History: None Reported Past Drug Use History: None Reported - Past Family History Mother Family Medical History: No Reported History <Jaylan Schaeffer - Last Filed: 10/04/22 10:38> General Exam Limitations: no limitations General appearance: alert (s) Head exam: Present: atraumatic Eye exam: Present: normal appearance. Absent: scleral icterus, conjunctival injection, periorbital swelling Neck exam: Present: normal inspection, full ROM. Absent: tenderness, meningismus Respiratory exam: Present: normal lung sounds bilaterally. Absent: respiratory distress, accessory muscle use Cardiovascular Exam: Present: regular rate, normal rhythm Extremities exam: Present: full ROM, normal capillary refill. Absent: tenderness, pedal edema Neurological exam: Present: alert, oriented X3 Psychiatric exam: Present: normal affect, normal mood Skin exam: Present: warm, dry, normal color. Absent: cyanosis, diaphoretic <Jaylan Schaeffer - Last Filed: 10/04/22 10:38> Course Vital Signs 10/04/22 10/04/22 07:03 09:24 Temperature 98.4 F Pulse Rate 73 60 Respiratory 18 18 Rate Blood Pressure 169/82 146/65 O2 Sat by Pulse 98 100 Oximetry Medical Decision Making - Lab Data Result diagrams: 10/04/22 07:59 10/04/22 07:59 <Catarino Moreira - Last Filed: 10/04/22 09:39> - Lab Data Result diagrams: 10/04/22 07:59 10/04/22 07:59 <Jaylan Schaeffer - Last Filed: 10/04/22 10:38> - Medical Decision Making EKG was interpreted by myself that shows a sinus bradycardia 59 bpm NH interval 246 dresses 94 Q-T intervals 425 QTC is 425 per patient's EKG shows no ST segment elevation or depression. Was pt. sent in by a medical professional or institution (, POWER, CHART READER, urgent care, hospital, or fdc...) When possible be specific @ -No Did you speak to anyone other than the patient for history (EMS, parent, family, police, friend...)? What history was obtained from this source @ -No Did you review nursing and triage notes (agree or disagree)? Why? @ -I reviewed and agree with nursing and triage notes Were old charts reviewed (outside hosp., previous admission, EMS record, old E KG, old radiological studies, urgent care reports/EKG's, fdc records)? Report findings @ -I reviewed prior charts and per lab work on this patient Differential Diagnosis (chest pain, altered mental status, abdominal pain women, abdominal pain men, vaginal bleeding, weakness, fever, dyspnea, syncope, headache, dizziness, GI bleed, back pain, seizure, CVA, palpatations, mental health, musculoskeletal)? @ -Differential Chest Pain: Stable Angina, Unstable Angina, STEMI, NSTEMI Aortic Dissection, Pneumothorax, Musculoskeletal, Esophageal Spasm GERD, Cholecystitis, Pancreatitis, Zoster, this is not meant to be an all-inclusive list. EKG interpreted by me (3pts min.). @ -As above X-rays interpreted by me (1pt min.). @ -Chest x-ray shows no acute abnormality CT interpreted by me (1pt min.). @ -None done U/S interpreted by me (1pt. min.). @ -None done What testing was considered but not performed or refused? (CT, X-rays, U/S, labs)? Why? @ -None What meds were considered but not given or refused? Why? @ -None Did you discuss the management of the patient with other professionals (professionals i.e. , POWER, CHART READER, lab, RT, psych nurse, social media job titles, pre planning advisor, teacher, sanitation officer, caser)? Give summary @ -I spoke with [facility] and he agreed to admit the patient admitted the patient wrote admitting orders Was smoking cessation discussed for >3mins.? @ -No Was critical care preformed (if so, how long)? @ -No Were there social determinants of health that impacted care today? How? (Homelessness, low income, unemployed, alcoholism, drug addiction, transportation, low edu. Level, literacy, decrease access to med. care, alf, rehab)? @ -No Was there de-escalation of care discussed even if they declined (Discuss DNR or withdrawal of care, Hospice)? DNR status @ -No What co-morbidities impacted this encounter? (DM, HTN, Smoking, COPD, CAD, Cancer, CVA, ARF, Chemo, Hep., AIDS, mental health diagnosis, sleep apnea, morbid obesity)? @ -None Was patient admitted / discharged? Hospital course, mention meds given and route, prescriptions, significant lab abnormalities, going to OR and other pertinent info. @ -Patient continued to have heaviness in the left arm and minimal heaviness in the chest. I spoke with [facility] after lab work showed no acute abnormalities and he agreed to take the patient I admitted the patient to them I consult cardiology Undiagnosed new problem with uncertain prognosis? @ -No Drug Therapy requiring intensive monitoring for toxicity (Heparin, Nitro, Insulin, Cardizem)? @ -No Were any procedures done? @ -No Diagnosis/symptom? @ -Chest pain Acute, or Chronic, or Acute on Chronic? @ -Acute Uncomplicated (without systemic symptoms) or Complicated (systemic symptoms)? @ -Complicated Side effects of treatment? @ -No Exacerbation, Progression, or Severe Exacerbation? @ -No Poses a threat to life or bodily function? How? (Chest pain, [place], [place], pneumonia, PE, COPD, DKA, ARF, appy, cholecystitis, CVA, Diverticulitis, Homicidal, Suicidal, threat to staff... and all critical care pts) @ -Yes this can lead to an [place] which could lead to end organ dysfunction (Catarino Moreira) - Lab Data Lab Results 10/04/22 10/04/22 10/04/22 Range/Units 07:59 07:59 07:59 WBC 5.6 (3.8-10.6) k/uL RBC 4.58 (3.80-5.40) m/uL Hgb 13.0 (11.4-16.0) gm/dL Hct 38.5 (34.0-46.0) % MCV 84.1 (80.0-100.0) fL MCH 28.3 (25.0-35.0) pg MCHC 33.7 (31.0-37.0) g/dL RDW 13.1 (11.5-15.5) % Plt Count 498 H (150-450) k/uL MPV 7.3 Neutrophils % 59 % Lymphocytes % 29 % Monocytes % 8 % Eosinophils % 3 % Basophils % 1 % Neutrophils # 3.3 (1.3-7.7) k/uL Lymphocytes # 1.6 (1.0-4.8) k/uL Monocytes # 0.4 (0-1.0) k/uL Eosinophils # 0.2 (0-0.7) k/uL Basophils # 0.0 (0-0.2) k/uL PT 10.2 (9.0-12.0) sec INR 1.0 (<1.2) APTT 23.6 (22.0-30.0) sec D-Dimer 0.49 (<0.60) mg/L FEU Sodium 128 L (137-145) mmol/L Potassium 4.9 (3.5-5.1) mmol/L Chloride 94 L (98-107) mmol/L Carbon Dioxide 25 (22-30) mmol/L Anion Gap 9 mmol/L BUN 10 (7-17) mg/dL Creatinine 0.55 (0.52-1.04) mg/dL Est GFR (CKD-EPI)AfAm >90 (>60 ml/min/1.73 sqM) Est GFR (CKD-EPI)NonAf >90 (>60 ml/min/1.73 sqM) Glucose 104 H (74-99) mg/dL Calcium 10.2 (8.4-10.2) mg/dL Magnesium 1.7 (1.6-2.3) mg/dL Total Bilirubin 0.5 (0.2-1.3) mg/dL AST 28 (14-36) U/L ALT 23 (4-34) U/L Alkaline Phosphatase 88 (38-126) U/L Troponin I (0.000-0.034) ng/mL Total Protein 7.9 (6.3-8.2) g/dL Albumin 4.7 (3.5-5.0) g/dL 10/04/22 Range/Units 07:59 WBC (3.8-10.6) k/uL RBC (3.80-5.40) m/uL Hgb (11.4-16.0) gm/dL Hct (34.0-46.0) % MCV (80.0-100.0) fL MCH (25.0-35.0) pg MCHC (31.0-37.0) g/dL RDW (11.5-15.5) % Plt Count (150-450) k/uL MPV Neutrophils % % Lymphocytes % % Monocytes % % Eosinophils % % Basophils % % Neutrophils # (1.3-7.7) k/uL Lymphocytes # (1.0-4.8) k/uL Monocytes # (0-1.0) k/uL Eosinophils # (0-0.7) k/uL Basophils # (0-0.2) k/uL PT (9.0-12.0) sec INR (<1.2) APTT (22.0-30.0) sec D-Dimer (<0.60) mg/L FEU Sodium (137-145) mmol/L Potassium (3.5-5.1) mmol/L Chloride (98-107) mmol/L Carbon Dioxide (22-30) mmol/L Anion Gap mmol/L BUN (7-17) mg/dL Creatinine (0.52-1.04) mg/dL Est GFR (CKD-EPI)AfAm (>60 ml/min/1.73 sqM) Est GFR (CKD-EPI)NonAf (>60 ml/min/1.73 sqM) Glucose (74-99) mg/dL Calcium (8.4-10.2) mg/dL Magnesium (1.6-2.3) mg/dL Total Bilirubin (0.2-1.3) mg/dL AST (14-36) U/L ALT (4-34) U/L Alkaline Phosphatase (38-126) U/L Troponin I <0.012 (0.000-0.034) ng/mL Total Protein (6.3-8.2) g/dL Albumin (3.5-5.0) g/dL Disposition Time of Disposition: 09:42 <Catarino Moreira - Last Filed: 10/04/22 09:39> <Jaylan Schaeffer - Last Filed: 10/04/22 10:38> Clinical Impression: Chest pain Disposition: ADMITTED IP TO THIS HOSP
[2022-10-04] MEDS ORDERED: PANTOPRAZOLE 40 MG/10 ML VIAL IVP STA (07:11)
[2022-10-04 08:14] LABS: Basophils % (A) 1 %; Eosinophils # (A) 0.2 k/uL (0-0.7); Eosinophils % (A) 3 %; HCT 38.5 % (34.0-46.0); Lymphocytes # (A) 1.6 k/uL (1.0-4.8); Lymphocytes % (A) 29 %; MCH 28.3 pg (25.0-35.0); MCHC 33.7 g/dL (31.0-37.0); MCV 84.1 fL (80.0-100.0); Mean Platelet Volume 7.3; Monocytes # (A) 0.4 k/uL (0-1.0); Monocytes % (A) 8 %; Neutrophils # (A) 3.3 k/uL (1.3-7.7); Neutrophils % (A) 59 %; Platelet Count 498 k/uL (150-450); RBC 4.58 m/uL (3.80-5.40); RDW 13.1 % (11.5-15.5); WBC 5.6 k/uL (3.8-10.6)
[2022-10-04 08:23] LABS: Partial Thromboplastin Time 23.6 sec (22.0-30.0); Prothrombin Time 10.2 sec (9.0-12.0)
--- NOTE | 2022-10-04 08:29 | XR ---
EXAMINATION TYPE: XR chest 2V DATE OF EXAM: 10/04/2022 COMPARISON: 08/23/2020 HISTORY: 72-year-old female with chest pain TECHNIQUE: PA and lateral views FINDINGS: Heart normal size. Aorta and pulmonary vasculature within normal limits. Mild interstitial prominence and hyperinflation is unchanged. No consolidation or pleural effusion. Anterior endplate spondylosis mid to lower thoracic spine. IMPRESSION: COPD. No definite acute process.
[2022-10-04 08:30] LABS: ALT 23 U/L (4-34); AST 28 U/L (14-36); African American GFR (CKD) >90 (>60 ml/min/1.73 sqM); Albumin 4.7 g/dL (3.5-5.0); Alkaline Phosphatase 88 U/L (38-126); Anion Gap 9 mmol/L; Blood Urea Nitrogen 10 mg/dL (7-17); Calcium 10.2 mg/dL (8.4-10.2); Carbon Dioxide 25 mmol/L (22-30); Chloride 94 mmol/L (98-107); Glucose 104 mg/dL (74-99); Magnesium 1.7 mg/dL (1.6-2.3); Non-African American GFR(CKD) >90 (>60 ml/min/1.73 sqM); Potassium 4.9 mmol/L (3.5-5.1); Sodium 128 mmol/L (137-145); Total Bilirubin 0.5 mg/dL (0.2-1.3); Total Protein 7.9 g/dL (6.3-8.2)
[2022-10-04] MEDS ORDERED: NITROGLYCERIN SL TABS 0.4 MG TAB SUBLINGUAL PRN (09:23)
[2022-10-04] MEDS ORDERED: NALOXONE 0.4 MG/ML 1 ML VIAL IVP PRN (09:23)
[2022-10-04] MEDS ORDERED: ACETAMINOPHEN TAB 325 MG TAB PO PRN (09:23)
[2022-10-04] MEDS ORDERED: NITROGLYCERIN OINT 1 INCH/GM PACKET TOPICAL SCH (12:00)
[2022-10-04 12:05] LABS: Glucose,Whole Blood 108 mg/dL (70-110)
[2022-10-04] MEDS: INSULIN ASPART (NovoLOG) 100 UNIT/ML VIAL SQ SCH ×3 (12:06→22:26)
--- NOTE | 2022-10-04 13:00 | P.CRDCN ---
History of Present Illness History of present illness: HISTORY OF PRESENT ILLNESS: This is a 72-year-old female with a past medical history significant for hypertension, hyperlipidemia, and diabetes. Patient follows in the office with Dr. Redman. We have been asked to see the patient in consultation for chest pain. Patient examined at the bedside in the emergency room. Patient states she began having pain on the left side of her chest. She also reports a feeling like there is something underneath her left armpit that she described as "fluffy". She states the chest pain would feel like a sharp sensation that would last anywhere from 5-15 seconds at a time. She denied any shortness of breath. She states that this first began after she was walking back to bed after using the bathroom. She states that she stumbled into a wall and felt like her equilibrium was off. She states that she is usually pretty active and can walk without chest pain or shortness of breath. She states the pain is not worse with deep inspiration or chest wall palpation. She states that she has not had pains like this before. She is a nonsmoker. * EKG reveals sinus bradycardia with no signs of acute ischemia * Chest xray COPD. No definite acute process. * Laboratory data: WBC 5.6. Hemoglobin 13.0. Platelet count 498. D-dimer 0.49. Sodium 128. Potassium 4.9. BUN 10. Creatinine 0.55. Troponin negative 2 * Current home cardiac medications include aspirin 81 mg daily, Lipitor 20 mg daily, metoprolol tartrate 12.5 mg twice a day, gemfibrozil 600 mg twice a day, losartan 12.5 mg daily * Most recent echocardiogram obtained in August 2020 revealed ejection fraction 55%, mild MR, mild TR * Patient underwent Cardiolite stress test in August 2020 which was negative for reversible ischemia REVIEW OF SYSTEMS: At the time of my exam: CONSTITUTIONAL: Denies fever or chills. HEENT: Denies blurred vision, vision changes, or eye pain. Denies hemoptysis CARDIOVASCULAR: Denies chest pain. Denies orthopnea. Denies PND. Denies palpitations RESPIRATORY: Denies shortness of breath. GASTROINTESTINAL: Denies abdominal pain. Denies nausea or vomiting. HEMATOLOGIC: Denies bleeding disorders. GENITOURINARY: Denies any blood in urine. SKIN: Denies pruitis. Denies rash. PHYSICAL EXAM: VITAL SIGNS: Reviewed. GENERAL: Well-developed in no acute distress. HEENT: Head is normocephalic. Pupils are equal, round. Sclerae anicteric. Mucous membranes of the mouth are moist. Neck supple. No JVD or thyromegaly LUNGS: Respirations even and unlabored. Lungs essentially clear to auscultation bilaterally. HEART: Regular rate and rhythm. S1 and S2 heard. ABDOMEN: Soft. Nondistended. Nontender. EXTREMITIES: Normal range of motion. No clubbing or cyanosis. Peripheral pulses intact. No lower extremity edema NEUROLOGIC: Awake and alert. Oriented x 3. ASSESSMENT: Chest pain, atypical, troponin negative 2 Hyponatremia Hypertension Hyperlipidemia Diabetes Anxiety PLAN: An acute coronary event has been ruled out Obtain 2-D echo to assess cardiac fracture and function Resume home cardiac medications Patient to undergo dobutamine stress echo tomorrow Nothing by mouth at midnight Hold metoprolol secondary to stress testing tomorrow Further recommendations pending patient's course Nurse practitioner note has been reviewed by physician. Signing provider agrees with the documented findings, assessment, and plan of care. Past Medical History Past Medical History: Diabetes Mellitus, GERD/Reflux, Osteoarthritis (OA) History of Any Multi-Drug Resistant Organisms: None Reported Past Surgical History: Adenoidectomy, Hysterectomy, Orthopedic Surgery, Tonsillectomy Additional Past Surgical History / Comment(s): CATARACT SURGERY WITH IMPLANTS , LEFT KNEE ARTHROSCOPIC Past Anesthesia/Blood Transfusion Reactions: No Reported Reaction Past Psychological History: Anxiety Smoking Status: Never smoker Past Alcohol Use History: None Reported Past Drug Use History: None Reported - Past Family History Mother Family Medical History: No Reported History Medications and Allergies Home Medications Medication Instructions Recorded Confirmed Type Aspirin 81 mg PO HS 12/14/19 10/04/22 History Omeprazole 40 mg PO DAILY 12/14/19 10/04/22 History gemfibroziL [Lopid] 600 mg PO AC-BID 12/14/19 10/04/22 History metFORMIN HCL [Glucophage] 500 mg PO BID 12/14/19 10/04/22 History Atorvastatin [Lipitor] 20 mg PO DAILY #30 tab 08/24/20 10/04/22 Rx Metoprolol Tartrate [Lopressor] 12.5 mg PO BID #60 tab 08/24/20 10/04/22 Rx Cholecalciferol [Vitamin D3 (25 50 mcg PO DAILY 10/04/22 10/04/22 History Mcg = 1000 Iu)] Losartan [Cozaar] 12.5 mg PO DAILY 10/04/22 10/04/22 History Multivit-Min/FA/Lycopen/Lutein 1 tab PO DAILY 10/04/22 10/04/22 History [Centrum Silver Tablet] Triamcinolone 0.1% Cream [Kenalog 1 applic TOPICAL TID 10/04/22 10/04/22 History 0.1% Cream] Allergies Allergy/AdvReac Type Severity Reaction Status Date / Time vancomycin AdvReac SEVERE Verified 10/04/22 08:42 HEADACHE Physical Exam Vitals: Vital Signs Temp Pulse Resp BP Pulse Ox 10/04/22 09:24 60 18 146/65 100 10/04/22 07:03 98.4 F 73 18 169/82 98 Intake and Output 10/03/22 10/04/22 10/04/22 22:59 06:59 14:59 Other: Weight 49.895 kg Results 10/04/22 07:59 10/04/22 07:59 Cardiac Enzymes 10/04/22 10/04/22 Range/Units 07:59 07:59 AST 28 (14-36) U/L Troponin I <0.012 (0.000-0.034) ng/mL Coagulation 10/04/22 Range/Units 07:59 PT 10.2 (9.0-12.0) sec APTT 23.6 (22.0-30.0) sec CBC 10/04/22 Range/Units 07:59 WBC 5.6 (3.8-10.6) k/uL RBC 4.58 (3.80-5.40) m/uL Hgb 13.0 (11.4-16.0) gm/dL Hct 38.5 (34.0-46.0) % Plt Count 498 H (150-450) k/uL Comprehensive Metabolic Panel 10/04/22 Range/Units 07:59 Sodium 128 L (137-145) mmol/L Potassium 4.9 (3.5-5.1) mmol/L Chloride 94 L (98-107) mmol/L Carbon Dioxide 25 (22-30) mmol/L BUN 10 (7-17) mg/dL Creatinine 0.55 (0.52-1.04) mg/dL Glucose 104 H (74-99) mg/dL Calcium 10.2 (8.4-10.2) mg/dL AST 28 (14-36) U/L ALT 23 (4-34) U/L Alkaline Phosphatase 88 (38-126) U/L Total Protein 7.9 (6.3-8.2) g/dL Albumin 4.7 (3.5-5.0) g/dL Current Medications Generic Name Dose Route Start Last Admin Trade Name Freq PRN Reason Stop Dose Admin Acetaminophen 650 mg 10/04/22 09:23 Acetaminophen Tab 325 Mg Tab PO Q6HR PRN Mild Pain or Fever > 100.5 Aspirin 81 mg 10/04/22 21:00 Aspirin 81 Mg PO HS [facility] Aspirin 325 mg 10/05/22 09:00 Aspirin 325 Mg Tab PO DAILY [facility] Atorvastatin Calcium 20 mg 10/05/22 09:00 Atorvastatin 20 Mg Tab PO DAILY [facility] Enoxaparin Sodium 40 mg 10/05/22 09:00 Enoxaparin 40 Mg/0.4 Ml Syringe SQ DAILY [facility] Insulin Aspart 0 unit 10/04/22 12:30 Insulin Aspart (Novolog) 100 Unit/Ml Vial SQ ACHS [facility] Protocol Losartan Potassium 12.5 mg 10/05/22 09:00 Losartan 25 Mg Tab PO DAILY [facility] Metoprolol Tartrate 12.5 mg 10/04/22 21:00 Metoprolol Tartrate 12.5 Mg Tab PO BID [facility] Naloxone HCl 0.2 mg 10/04/22 09:23 Naloxone 0.4 Mg/Ml 1 Ml Vial IVP Q2M PRN Opioid Reversal Nitroglycerin 0.4 mg 10/04/22 09:23 Nitroglycerin Sl Tabs 0.4 Mg Tab SUBLINGUAL Q5M PRN Chest Pain Nitroglycerin 1 inch 10/04/22 12:00 Nitroglycerin Oint 1 Inch/Gm Packet TOPICAL Q6HR [facility] Pantoprazole Sodium 40 mg 10/05/22 07:30 Pantoprazole 40 Mg Tablet PO AC-BRKFST [facility] Intake and Output 10/03/22 10/04/22 10/04/22 22:59 06:59 14:59 Other: Weight 49.895 kg Patient Weight 10/05/22 06:59 Weight 49.895 kg 10/04/22 07:59 10/04/22 07:59
--- NOTE | 2022-10-04 15:43 | P.HPIM ---
History of Present Illness H&P Date: 10/04/22 Chief Complaint: Chest pain History of presenting illness: 72-year-old lady with history of hypertension, diabetes hyperlipidemia presented to the emergency department with complaints of chest pain. Workup included negative troponin, EKG showed bradycardia and no ST segment changes. Chest x-ray obtained at the time of admission negative for acute intrathoracic process. Patient states the chest pain as left-sided and intermittent. At times she would have stopped sensation that would last about 15 seconds. Patient denied associated diaphoresis or shortness of breath patient says otherwise she is active as a strong family history of coronary artery disease REVIEW OF SYSTEMS: Positive for chest pain CONSTITUTIONAL: No fever, no malaise, no fatigue. HEENT: No recent visual problems or hearing problems. Denied any sore throat. CARDIOVASCULAR: No orthopnea, PND, no palpitations, no syncope. PULMONARY: No shortness of breath, no cough, no hemoptysis. GASTROINTESTINAL: No diarrhea, no nausea, no vomiting, no abdominal pain. NEUROLOGICAL: No headaches, no weakness, no numbness. HEMATOLOGICAL: Denies any bleeding or petechiae. GENITOURINARY: Denies any burning micturition, frequency, or urgency. MUSCULOSKELETAL/RHEUMATOLOGICAL: Denies any joint pain, swelling, or any muscle pain. ENDOCRINE: Denies any polyuria or polydipsia. The rest of the 14-point review of systems is negative. PHYSICAL EXAMINATION: GENERAL: The patient is alert and oriented x3, not in any acute distress. Well developed, well nourished. HEENT: Pupils are round and equally reacting to light. EOMI. No scleral icterus. No conjunctival pallor. Normocephalic, atraumatic. No pharyngeal erythema. No thyromegaly. CARDIOVASCULAR: S1 and S2 present. No murmurs, rubs, or gallops. PULMONARY: Chest is clear to auscultation, no wheezing or crackles. ABDOMEN: Soft, nontender, nondistended, normoactive bowel sounds. No palpable organomegaly. MUSCULOSKELETAL: No joint swelling or deformity. EXTREMITIES: No cyanosis, clubbing, or pedal edema. NEUROLOGICAL: Gross neurological examination did not reveal any focal deficits. SKIN: No rashes. Past Medical History Past Medical History: Diabetes Mellitus, GERD/Reflux, Osteoarthritis (OA) History of Any Multi-Drug Resistant Organisms: None Reported Past Surgical History: Adenoidectomy, Hysterectomy, Orthopedic Surgery, Tonsillectomy Additional Past Surgical History / Comment(s): CATARACT SURGERY WITH IMPLANTS , LEFT KNEE ARTHROSCOPIC Past Anesthesia/Blood Transfusion Reactions: No Reported Reaction Past Psychological History: Anxiety Smoking Status: Never smoker Past Alcohol Use History: None Reported Past Drug Use History: None Reported - Past Family History Mother Family Medical History: No Reported History Medications and Allergies Home Medications Medication Instructions Recorded Confirmed Type Aspirin 81 mg PO HS 12/14/19 10/04/22 History Omeprazole 40 mg PO DAILY 12/14/19 10/04/22 History gemfibroziL [Lopid] 600 mg PO AC-BID 12/14/19 10/04/22 History metFORMIN HCL [Glucophage] 500 mg PO BID 12/14/19 10/04/22 History Atorvastatin [Lipitor] 20 mg PO DAILY #30 tab 08/24/20 10/04/22 Rx Metoprolol Tartrate [Lopressor] 12.5 mg PO BID #60 tab 08/24/20 10/04/22 Rx Cholecalciferol [Vitamin D3 (25 50 mcg PO DAILY 10/04/22 10/04/22 History Mcg = 1000 Iu)] Losartan [Cozaar] 12.5 mg PO DAILY 10/04/22 10/04/22 History Multivit-Min/FA/Lycopen/Lutein 1 tab PO DAILY 10/04/22 10/04/22 History [Centrum Silver Tablet] Triamcinolone 0.1% Cream [Kenalog 1 applic TOPICAL TID 10/04/22 10/04/22 History 0.1% Cream] Allergies Allergy/AdvReac Type Severity Reaction Status Date / Time vancomycin AdvReac SEVERE Verified 10/04/22 08:42 HEADACHE Physical Exam Vitals: Vital Signs Temp Pulse Resp BP Pulse Ox 10/04/22 13:45 65 17 157/66 98 10/04/22 09:24 60 18 146/65 100 10/04/22 07:03 98.4 F 73 18 169/82 98 Intake and Output 10/04/22 10/04/22 10/04/22 06:59 14:59 22:59 Other: Weight 49.895 kg Results CBC & Chem 7: 10/04/22 07:59 10/04/22 07:59 Labs: Abnormal Lab Results - Last 24 Hours (Table) 10/04/22 10/04/22 Range/Units 07:59 07:59 Plt Count 498 H (150-450) k/uL Sodium 128 L (137-145) mmol/L Chloride 94 L (98-107) mmol/L Glucose 104 H (74-99) mg/dL Assessment and Plan Assessment: Assessment and plan * Chest pain rule out acute coronary syndrome * Hypertension * Hyperlipidemia * Diabetes mellitus2 * History of anxiety * Acute hyponatremia * Consult obtained from cardiology * Seasonal troponins ordered, continue aspirin, Lipitor, losartan sublingual nitroglycerin for chest pain * Schedule for stress test 10/05 * Code status is full code
[2022-10-04 16:56] LABS: Glucose,Whole Blood 91 mg/dL (70-110)
[2022-10-04] MEDS ORDERED: METOPROLOL TARTRATE 12.5 MG TAB PO SCH (21:00)
[2022-10-04] MEDS ORDERED: ASPIRIN 81 MG PO SCH (21:00)
[2022-10-05] MEDS ORDERED: DOBUTamine DRIP for NUC MED 500 MG in DEXTROSE/WATER 1 250ML.BAG IV PRN (06:00)
[2022-10-05 06:14] LABS: Glucose,Whole Blood 114 mg/dL (70-110)
[2022-10-05] MEDS: PANTOPRAZOLE 40 MG TABLET PO SCH ×2 (06:15→09:01)
[2022-10-05] MEDS: INSULIN ASPART (NovoLOG) 100 UNIT/ML VIAL SQ SCH ×2 (06:15→12:30)
[2022-10-05] MEDS ORDERED: LOSARTAN 25 MG TAB PO SCH (09:00)
[2022-10-05] MEDS ORDERED: ASPIRIN 325 MG TAB PO SCH (09:00)
[2022-10-05] MEDS ORDERED: ENOXAPARIN 40 MG/0.4 ML SYRINGE SQ SCH (09:00)
[2022-10-05] MEDS ORDERED: ATORVASTATIN 20 MG TAB PO SCH (09:00)
[2022-10-05 09:15] LABS: Chol/HDL Ratio 2.03 Ratio; VLDL Calculation 11.48 mg/dL (5.00-40.00)
--- NOTE | 2022-10-05 10:23 | P.PN ---
Subjective HISTORY OF PRESENT ILLNESS: This is a 72-year-old female with a past medical history significant for hypertension, hyperlipidemia, and diabetes. Patient follows in the office with Dr. Redman. We have been asked to see the patient in consultation for chest pain. Patient examined at the bedside in the emergency room. Patient states she began having pain on the left side of her chest. She also reports a feeling like there is something underneath her left armpit that she described as "fluffy". She states the chest pain would feel like a sharp sensation that would last anywhere from 5-15 seconds at a time. She denied any shortness of breath. She states that this first began after she was walking back to bed after using the bathroom. She states that she stumbled into a wall and felt like her equilibrium was off. She states that she is usually pretty active and can walk without chest pain or shortness of breath. She states the pain is not worse with deep inspiration or chest wall palpation. She states that she has not had pains like this before. She is a nonsmoker. * EKG reveals sinus bradycardia with no signs of acute ischemia * Chest xray COPD. No definite acute process. * Laboratory data: WBC 5.6. Hemoglobin 13.0. Platelet count 498. D-dimer 0.49. Sodium 128. Potassium 4.9. BUN 10. Creatinine 0.55. Troponin negative 2 * Current home cardiac medications include aspirin 81 mg daily, Lipitor 20 mg daily, metoprolol tartrate 12.5 mg twice a day, gemfibrozil 600 mg twice a day, losartan 12.5 mg daily * Most recent echocardiogram obtained in August 2020 revealed ejection fraction 55%, mild MR, mild TR * Patient underwent Cardiolite stress test in August 2020 which was negative for reversible ischemia 10/05/2022 Patient examined this morning at the bedside. Patient denies any further episodes of chest pain or pressure. She currently denies shortness of breath. Patient's vital signs are stable. PHYSICAL EXAM: VITAL SIGNS: Reviewed. GENERAL: Well-developed in no acute distress. HEENT: Head is normocephalic. Pupils are equal, round. Sclerae anicteric. Mucous membranes of the mouth are moist. Neck supple. No JVD or thyromegaly LUNGS: Respirations even and unlabored. Lungs essentially clear to auscultation bilaterally. HEART: Regular rate and rhythm. S1 and S2 heard. ABDOMEN: Soft. Nondistended. Nontender. EXTREMITIES: Normal range of motion. No clubbing or cyanosis. Peripheral pulses intact. No lower extremity edema NEUROLOGIC: Awake and alert. Oriented x 3. ASSESSMENT: Chest pain, atypical, troponin negative 2 Hyponatremia Hypertension Hyperlipidemia Diabetes Anxiety PLAN: 2-D echo has been ordered. Await results Metoprolol on hold secondary to stress testing. Resume post stress test Patient to undergo dobutamine stress echo today If dobutamine stress test is negative, the patient may be discharged home today from a cardiac standpoint Nurse practitioner note has been reviewed by physician. Signing provider agrees with the documented findings, assessment, and plan of care. Objective - Vital Signs Vital signs: Vital Signs Temp 97.7 F 10/05/22 07:00 Pulse 65 10/05/22 07:00 Resp 16 10/05/22 09:02 BP 132/71 10/05/22 07:00 Pulse Ox 99 10/05/22 07:00 FiO2 Intake & Output 10/04/22 10/05/22 10/05/22 18:59 06:59 18:59 Weight 49.895 kg Other: Voiding Method Toilet # Voids 1 - Labs CBC & Chem 7: 10/04/22 07:59 10/04/22 07:59 Labs: Abnormal Lab Results - Last 24 Hours (Table) 10/04/22 10/04/22 10/05/22 Range/Units 07:59 10:57 06:13 POC Glucose (mg/dL) 114 H (70-110) mg/dL Hemoglobin A1c 7.0 H (<=6.0) % HDL Cholesterol 89.50 H (40.00-60.00) mg/dL
[2022-10-05] MEDS ORDERED: DOBUTamine DRIP for NUC MED 500 MG/250 ML BAG IV ONE (10:45)
[2022-10-05 12:17] LABS: Glucose,Whole Blood 97 mg/dL (70-110)
--- NOTE | 2022-10-05 13:04 | CA ---
Dobutamine Stress Echocardiogram Report Nehemiah Ge Age: 72 Gender: F : 1950 Exam Date: 10/05/2022 10:43 Exam Location: [facility] Ordering Physician: Gabi Olson Referring Physician: GABI OLSON,, Manager Urology: Salma Davalos RDCS Technologist: Ht (in): 61 Wt (lb): 110 Procedure CPT: Indication: CP ICD-9 Codes: Rhythm: Patient History: Diabetes mellitus, Hypertension, Family history Cardiac Medications: Medications in past 24 hours: Contrast: Total Dose (mL): Stress Results Protocol: Peak Dose (???g/kg/min): Duration (min:sec): Atropine:(mg) Target HR: 125 Double Product: [id number] Resting HR: 69 Resting BP: 143 / 89 Peak HR: 147 Peak BP: 166 / 85 Max Predicted HR: 147 100 % Max Predicted HR Stress Summary: BP Response: Reason for Termination: Target HR,INFUSION COMPLETE Cardiac Symptoms: NO SYMPTOMS ECG Analysis Resting EKG: Normal sinus rhythm, normal ECG Stress EKG: No abnormal ST/T wave changes with exercise Arrhythmia: None Echo Analysis Base Echo Analysis: Normal resting echocardiogram. Low Echo Anaylsis: No segmental wall motion abnormality Peak Echo Analysis: No wall motion changes with stress. Recovery Echo: Normal wall motion and thickening MEASUREMENTS (Male/Female) Normal Values CONCLUSIONS 1. Normal left electrocardiographic response to dobutamine infusion 2.Normal Dobutamine stress echocardiogram. Dr. Lillian Trinh MD (Electronically Signed) Final Date: 05 October 2022 13:03
--- NOTE | 2022-10-05 13:07 | CA ---
Transthoracic Echo Report Name: Nehemiah Ge Age: 72 Gender: F : 1950 Exam Date: 10/05/2022 11:06 Exam Location: [facility] Ht (in): 61 Wt (lb): 110 Ordering Physician: Gabi Olson Attending/Referring Phys: [id number], Wesley Corrugator Supervisor Salma Davalos, PAT Procedure CPT: Indications: LV function, CP Cardiac Hx: Technical Quality: Good Contrast 1: Total Dose (mL): Contrast 2: Total Dose (mL): MEASUREMENTS (Male / Female) Normal Values 2D ECHO LV Diastolic Diameter PLAX 4.2 cm 4.2 - 5.9 / 3.9 - 5.3 cm LV Systolic Diameter PLAX 2.4 cm IVS Diastolic Thickness 1.0 cm 0.6 - 1.0 / 0.6 - 0.9 cm LVPW Diastolic Thickness 0.7 cm 0.6 - 1.0 / 0.6 - 0.9 cm LV Relative Wall Thickness 0.4 RV Internal Dim ED PLAX 3.1 cm LA Systolic Diameter LX 3.1 cm 3.0 - 4.0 / 2.7 - 3.8 cm LV Diastolic Volume MOD 4C 74.6 cm??? LV Systolic Volume MOD 4C 31.4 cm??? LV Ejection Fraction MOD 4C 57.9 % LV Cardiac Index MOD 4C 2411.5 cm???/min???m??? LV Diastolic Length 4C 8.0 cm LV Systolic Length 4C 6.4 cm LV Diastolic Volume MOD 2C 57.9 cm??? LV Systolic Volume MOD 2C 20.8 cm??? LV Ejection Fraction MOD 2C 64.1 % LV Cardiac Index MOD 2C 2073.9 cm???/min???m??? LV Diastolic Length 2C 7.4 cm LV Systolic Length 2C 6.0 cm LA Volume 37.7 cm??? 18 - 58 / 22 - 52 cm??? M-MODE Aortic Root Diameter MM 3.0 cm AV Cusp Separation MM 2.1 cm DOPPLER AV Peak Velocity 114.6 cm/s AV Peak Gradient 5.3 mmHg MV Area PHT 2.3 cm??? Mitral E Point Velocity 88.0 cm/s Mitral A Point Velocity 126.2 cm/s Mitral E to A Ratio 0.7 MV Deceleration Time 324.7 ms MV E' Velocity 5.9 cm/s Mitral E to MV E' Ratio 14.9 TR Peak Velocity 212.1 cm/s TR Peak Gradient 18.0 mmHg Right Ventricular Systolic Press 23.0 mmHg FINDINGS Left Ventricle Left ventricular ejection fraction is estimated at 55-60 %. Left ventricular cavity size normal. Left ventricular wall thickness normal.normal left ventricular wall motion. Right Ventricle Normal right ventricular size. Right ventricular systolic pressure within normal limits. Right Atrium Normal right atrial size. Left Atrium Normal left atrial size. Mitral Valve Mitral valve thickened. Mild mitral regurgitation. Moderate mitral annular calcification. Aortic Valve Trileaflet aortic valve. No aortic valve stenosis or regurgitation. Tricuspid Valve Structurally normal tricuspid valve. mild tricuspid regurgitation. Pulmonic Valve Structurally normal pulmonic valve. No pulmonic regurgitation. Pericardium Normal pericardium. No pericardial effusion. Aorta Normal size aortic root and proximal ascending aorta. CONCLUSIONS 1. Normal left ventricle size and systolic function 2. Mild mitral regurgitation with moderate mitral anulus calcification 3. Mild tricuspid regurgitation Previewed by: Dr. Lillian Trinh MD (Electronically Signed) Final Date: 05 October 2022 13:06
--- NOTE | 2022-10-05 14:24 | P.DS ---
Providers Date of admission: 10/04/22 09:26 Expected date of discharge: 10/05/22 Attending physician: Beena Aragon MD Consults: 10/04/22 09:24 Consult Physician Routine Consulting Provider: [facility] Consult Reason/Comments: Chest Pain Do you want consulting provider notified?: Yes Primary care physician: [facility] Course: 72-year-old lady with history of hypertension, diabetes hyperlipidemia presented to the emergency department with complaints of chest pain. Workup included negative troponin, EKG showed bradycardia and no ST segment changes. Chest x- ray obtained at the time of admission negative for acute intrathoracic process. Patient states the chest pain as left-sided and intermittent. Workup included multiple troponins which were negative. Echocardiogram, stress echo was obtained which was negative as well. Patient was seen by cardiology during the hospital stay and cleared for discharge after negative stress test Home medications were continued without changes PHYSICAL EXAMINATION: GENERAL: The patient is alert and oriented x3, not in any acute distress. Well developed, well nourished. HEENT: Pupils are round and equally reacting to light. EOMI. No scleral icterus. No conjunctival pallor. Normocephalic, atraumatic. No pharyngeal erythema. No thyromegaly. CARDIOVASCULAR: S1 and S2 present. No murmurs, rubs, or gallops. PULMONARY: Chest is clear to auscultation, no wheezing or crackles. ABDOMEN: Soft, nontender, nondistended, normoactive bowel sounds. No palpable organomegaly. MUSCULOSKELETAL: No joint swelling or deformity. EXTREMITIES: No cyanosis, clubbing, or pedal edema. NEUROLOGICAL: Gross neurological examination did not reveal any focal deficits. SKIN: No rashes. * Chest pain ruled out acute coronary syndrome * Hypertension * Hyperlipidemia * Diabetes mellitus2 * History of anxiety * Acute hyponatremia * Consult obtained from cardiology * Seasonal troponins negative, dobutamine stress echo negative * Discharged home in stable condition all questions answered Patient Condition at Discharge: Fair Plan - Discharge Summary New Discharge Prescriptions: Continue Omeprazole 40 mg PO DAILY Aspirin 81 mg PO HS gemfibroziL [Lopid] 600 mg PO AC-BID metFORMIN HCL [Glucophage] 500 mg PO BID Atorvastatin [Lipitor] 20 mg PO DAILY #30 tab Triamcinolone 0.1% Cream [Kenalog 0.1% Cream] 1 applic TOPICAL TID Losartan [Cozaar] 12.5 mg PO DAILY Cholecalciferol [Vitamin D3 (25 Mcg = 1000 Iu)] 50 mcg PO DAILY Metoprolol Tartrate [Lopressor] 12.5 mg PO BID #60 tab Multivit-Min/FA/Lycopen/Lutein [Centrum Silver Tablet] 1 tab PO DAILY Discharge Medication List Aspirin 81 mg PO HS 12/14/19 [History] Omeprazole 40 mg PO DAILY 12/14/19 [History] gemfibroziL [Lopid] 600 mg PO AC-BID 12/14/19 [History] metFORMIN HCL [Glucophage] 500 mg PO BID 12/14/19 [History] Atorvastatin [Lipitor] 20 mg PO DAILY #30 tab 08/24/20 [Rx] Metoprolol Tartrate [Lopressor] 12.5 mg PO BID #60 tab 08/24/20 [Rx] Cholecalciferol [Vitamin D3 (25 Mcg = 1000 Iu)] 50 mcg PO DAILY 10/04/22 [History] Losartan [Cozaar] 12.5 mg PO DAILY 10/04/22 [History] Multivit-Min/FA/Lycopen/Lutein [Centrum Silver Tablet] 1 tab PO DAILY 10/04/22 [History] Triamcinolone 0.1% Cream [Kenalog 0.1% Cream] 1 applic TOPICAL TID 10/04/22 [History] Follow up Appointment(s)/Referral(s): Sam Roach III, MD [Primary Care Provider] - 1-2 days Discharge Disposition: HOME SELF-CARE
[2022-10-05 14:30] VITALS: BP 112/67; PULSE 94; RESP 18; TEMP 98.3
[2022-10-05] MEDS ORDERED: METOPROLOL TARTRATE 12.5 MG TAB PO SCH (21:00)
== END 2022-10-05 15:10 | disposition home or self-care (01) ==
LOC: EC 06:57 → 6NMEDSUR 09:26
PROVIDERS: ADMIT Internal Medicine; ATTEND Internal Medicine
DX: R07.89 Other chest pain (principal); E11.9 Type 2 diabetes mellitus without complications; I10 Essential (primary) hypertension; K21.9 Gastro-esophageal reflux disease without esophagitis; F41.9 Anxiety disorder, unspecified; E78.5 Hyperlipidemia, unspecified; E87.1 Hypo-osmolality and hyponatremia; Z79.82 Long term (current) use of aspirin; Z79.899 Other long term (current) drug therapy; Z79.84 Long term (current) use of oral hypoglycemic drugs; Z88.1 Allergy status to other antibiotic agents
CPT/HCPCS: 96372; 96374; 99285; 36415; 93005; 93306; 93351; 85379; 80061; 80053; 83735; 84484; 85025; 85610; 85730; 83036; 71046; G0378 ×2; J1250; J1650; C9113